=== PATIENT | male | born 1960 | race Two or more races ===

== ENCOUNTER 2025-04-20 14:21 | Emergency (ER) | payer MEDICAID, SELFPAY ==
[2025-04-20] VITALS (8 sets, daily range): BP systolic 106–124; BP diastolic 61–70; PULSE 98–120; RESP 18–22; TEMP 37.3–39.3; O2SAT 95–99; BMI 23.7
--- NOTE | 2025-04-20 14:43 | EKG_ITS ---
[facility] Test Date: 2025-04-20 Pat Name: CHARLI REARDON Department: Room: - Gender: Male Data Analytics Developer: : [id number] Requested By: Marino Raymundo Order Number: [id number] Reading MD: Marino Raymundo Measurements Intervals [place] Rate: 111 P: 87 AK: 180 QRS: 98 QRSD: 103 T: 98 QT: 328 QTc: 447 Interpretive Statements SINUS TACHYCARDIA BORDERLINE RIGHT AXIS DEVIATION [QRS AXIS > 90] MODERATE ST DEPRESSION [0.05+ mV ST DEPRESSION] Compared to ECG 01/02/2024 18:39:47 ST (T wave) deviation now present Sinus rhythm no longer present T-wave abnormality no longer present /store/S0/[id number].pdf
--- NOTE | 2025-04-20 14:44 | XR_ITS ---
EXAMINATION: AP chest single view TECHNIQUE: AP portable upright chest single view Date and time: April 20, 2025, 1549 hours COMPARISON: January 02, 2024 INDICATIONS: Sepsis alert today with shortness of breath FINDINGS: Normal heart size The lungs are clear. Moderate osteopenia IMPRESSION: No active disease
--- NOTE | 2025-04-20 14:46 | PD.EDWEAK ---
ED Weakness RME/HPI General Chief complaint: Weakness Stated complaint: GENERAL WEAKNES Time Seen by Provider: 04/20/25 14:40 Arrival date/time: 04/20/25 14:21 RME / HPI RME / HPI Narrative: 64-year-old male patient with significant history of diabetes mellitus COPD, lung mass came in for evaluation regarding not feeling well. Patient symptoms started early today's patient complained of generalized weakness, feeling hot, headache, body aches, severity moderate. Patient denies any cough denies any abdominal pain. No vomiting no diarrhea. Denies any sore throat. Patient was noted to be tachycardic 112 and temperature of 102.7. Sepsis alert was initiated right away Related Data Home Medications ?Medication ?Instructions ?Recorded ?Confirmed metformin 1,000 mg tablet 1,000 mg PO DAILY 07/11/18 07/11/18 Previous Rx's ?Medication ?Instructions ?Recorded albuterol sulfate 90 mcg/actuation 2 puff inhalation QID PRN 07/17/18 aerosol inhaler shortness of breath or wheezing #6.7 grams budesonide-formoterol HFA 80 2 puff inhalation BID #6.9 grams 07/17/18 mcg-4.5 mcg/actuation aerosol inhaler (Symbicort) insulin glargine 100 unit/mL (3 10 unit (0.1 mL) subcut QDAY #3 mL 07/17/18 mL) subcutaneous pen (Basaglar KwikPen U-100 Insulin) levofloxacin 250 mg tablet 500 mg (2 x 250 mg) PO QDAY #2 tabs 07/17/18 prednisone 10 mg tablet See Rx Instructions .Route 07/17/18 .COMPLEX #5 tabs cephalexin 500 mg tablet 500 mg PO TID #21 tabs 01/03/24 ibuprofen 800 mg tablet 800 mg PO Q8H PRN pain #30 tabs 04/20/25 Allergies Allergy/AdvReac Type Severity Reaction Status Date / Time No Known Allergies Allergy Verified 04/20/25 14:46 Review of Systems Review of Systems Narrative Review of Systems: Review of system reviewed and within normal limits except mentioned in HPI ED Exam Narrative Physical exam: VITAL SIGNS: Reviewed. GENERAL APPEARANCE: Alert and interactive, follows commands, no acute distress, febrile HEAD AND FACE: Non-traumatic. ENT: PERRL, pink conjunctivitis, eyelid no trauma, Mucous membrane moist. NECK: Supple, nontender, no nuchal rigidity. CHEST: No tenderness, no crepitus, no paradoxical movement, no retractions. LUNGS: Clear, well ventilated, symmetric, no rales, no wheezing, no ronchi, no stridor, good breath sounds bilaterally. HEART: Regular rate, regular rhythm, no murmur, no gallops. ABDOMEN: Soft, positive bowel sounds, nondistended, no guarding, nontender, no rebound, no masses, RECTAL: Deferred. GENITAL: Deferred. NEUROLOGICAL: Gross motor function intact sensory function intact, Appropriate for age. MUSCULOSKELETAL: low back nontender, full range of motion. EXTREMITIES: Nontender, full range of motion. SKIN: Color pink, dry, no rash, no lacerations, no abrasions, no contusions. LYMPHATICS: Deferred. Course Quality Measures none Orders Category Date Time Status Bedside COVID-19 Antigen Test NOW Care 04/20/25 14:43 Active Bender Machine Operator STAT Care 04/20/25 14:43 Active Continuous Pulse Oximetry STAT Care 04/20/25 14:43 Completed EKG (ED ONLY) *Do not use* NOW Care 04/20/25 14:43 Completed In and Out Catheter X1PRN Care 04/20/25 14:43 Active Insert IV NOW Care 04/20/25 14:43 Active NPO STAT Care 04/20/25 14:43 Active Strict Intake and Output Routine Care 04/20/25 14:43 Ordered EKG (ED Only) Stat Exams 04/20/25 14:43 Draft XR chest 1V SEPSIS PROTOCOL Stat Exams 04/20/25 14:44 Completed B-Type Natriuretic Peptide Stat Lab 04/20/25 15:18 Completed Blood Culture (Lab) Stat Lab 04/20/25 15:18 Received CBC Stat Lab 04/20/25 15:18 Completed Comprehensive Metabolic Panel Stat Lab 04/20/25 15:18 Completed LDH (Lactate Dehydrogenase) Stat Lab 04/20/25 15:18 Completed Lactate (Lactic Acid) Stat Lab 04/20/25 15:18 Completed Lipase Stat Lab 04/20/25 15:18 Completed Magnesium Stat Lab 04/20/25 15:18 Completed Partial Thromboplastin Time Stat Lab 04/20/25 15:18 Completed Phosphorous Stat Lab 04/20/25 15:18 Completed Procalcitonin Stat Lab 04/20/25 15:18 Completed Prothrombin Time with INR Stat Lab 04/20/25 15:18 Completed Troponin I Stat Lab 04/20/25 15:18 Completed Urinalysis, C/S if Indicated Stat Lab 04/20/25 17:15 Completed Acetaminophen Tab [Tylenol ES Tab] Med 04/20/25 14:43 Discontinued 1,000 mg PO X1 ONE Ibuprofen Tab [Motrin Tab] Med 04/20/25 17:12 Discontinued 800 mg PO X1 ONE Ringers Lactated 1000 ml [Lactated Ringers] 1,000 ml Med 04/20/25 14:44 Discontinued IV 999 mls/hr cefTRIAXone/D5w 1gm IV premix [Rocephin/D5w 1gm IV Med 04/20/25 14:45 Discontinued premix] 1 gm in 50 ml IV X1 Oxygen Delivery NOW RT 04/20/25 14:43 Active Vital Signs Vital signs: Vital Signs Temperature 102.7 F H 04/20/25 14:38 Pulse Rate 112 H 04/20/25 14:38 Respiratory Rate 20 04/20/25 14:38 Blood Pressure 121/65 04/20/25 14:38 Pulse Oximetry (%) 95 04/20/25 14:38 Oxygen Delivery Method Room Air 04/20/25 14:38 Weakness MDM Narrative MDM Narrative:: 64-year-old male patient with significant history of diabetes mellitus COPD, lung mass came in for evaluation regarding not feeling well. Patient symptoms started early today's patient complained of generalized weakness, feeling hot, headache, body aches, severity moderate. Patient denies any cough denies any abdominal pain. No vomiting no diarrhea. Denies any sore throat. Patient was noted to be tachycardic 112 and temperature of 102.7. Sepsis alert was initiated right away Patient's workup today all came back significant for WBC count of 14.3 urinalysis no UTI chest x-ray no pneumonia the rest of the labs unremarkable. EKG showed sinus tachycardia cardia, ventricular to 111 bpm, no ST segment elevation or depression noted. Patient was noted to be afebrile, and denying any complaints. Patient received IV fluids and 1 g of IV ceftriaxone and Tylenol. Patient is probably having viral infection causing the fever. Patient CT scan of the abdomen is not needed since patient is not having any abdominal pain. Patient family was advised to return to the emergency room for worsening of symptoms. Currently patient is afebrile and told me that he is relieved to go back to baseline. He is tolerating p.o. fluids. Patient data External records reviewed:: None Clinical information provided by:: patient and family Social determinants that could affect healthcare access:: none Patient has the following chronic illnesses:: History of lung mass How is presenting disease/condition affected by chronic disease/condition?: exacerbated by Evaluation data The following diagnostics were reviewed and interpreted by me:: lab results, radiology exam(s) and EKG tracing(s) Lab and/or radiology exams considered but not ordered:: None Interpretation Summary: Results came back unremarkable. See MDM Medications / Prescriptions Medications or Prescriptions considered but not ordered:: None Medication administrations:: Medication Administration History Discontinued Medications Acetaminophen (Acetaminophen 500 Mg Tablet) 1,000 mg PO X1 ONE Stop: 04/20/25 14:44 Last Admin: 04/20/25 15:12 Dose: 1,000 mg Documented By: DO Lactated Ringer's (Lactated Ringers) 1,000 mls @ 999 mls/hr IV .Q1H1M ONE Stop: 04/20/25 15:44 Last Admin: 04/20/25 15:12 Dose: 999 mls/hr Documented By: DO Ceftriaxone Sodium/Dextrose (Rocephin/D5w 1gm Iv Premix) 1 gm in 50 mls @ 100 mls/hr IV X1 ONE Stop: 04/20/25 15:14 Last Infusion: 04/20/25 18:21 Dose: Infused Documented By: Admin: 04/20/25 15:49 Dose: 100 mls/hr Documented By: DO Ibuprofen (Ibuprofen Tab 400 Mg Tablet) 800 mg PO X1 ONE Stop: 04/20/25 17:13 Last Admin: 04/20/25 18:24 Dose: 800 mg Documented By: VG Motrin, Tylenol, IV fluids ceftriaxone IV. Consultations Consultation(s) initiated? (list below): No Diagnosis Weakness Differential Diagnosis: anemia, sepsis and dehydration Most likely diagnosis given after review of the tests above:: Viral disease Admission Indicated Admission indicated?: not indicated Admission Request Was there a request for admission?: No Disposition Plan Disposition Plan: Discharge Discharge Attestation Discharge Attestation: The patient and all family members were given an opportunity to ask questions and understood the discharge instructions. Discharge instructions specifically effects, indications for sooner follow up or return to the emergency department, and the expected course of current diagnosis. Patient condition: Stable Discharge Plan Plan Patient Disposition: HOME (Self Care) Discharge Disposition comment: Stable Prescriptions/Referrals Prescriptions/Med Rec: New ibuprofen 800 mg tablet 800 mg PO Q8H PRN (Reason: pain) Qty: 30 0RF No Action metformin 1,000 mg Tablet 1,000 mg PO DAILY levofloxacin 250 mg Tablet 500 mg PO QDAY Qty: 2 0RF Rx Instructions: Start 07/18. Luxem[place]ish-language label. albuterol sulfate 90 mcg/actuation HFA aerosol inhaler 2 puff INH QID PRN (Reason: shortness of breath or wheezing) Qty: 6.7 0RF budesonide-formoterol [Symbicort] 80-4.5 mcg/actuation HFA aerosol inhaler 2 puff INH BID Qty: 6.9 0RF prednisone 10 mg tablet See Rx Instructions .ROUTE .COMPLEX Qty: 5 0RF Rx Instructions: 1 tab PO Qday x 3 days then 1/2 tab PO Qday x 3 days then stop insulin glargine [Basaglar KwikPen U-100 Insulin] 100 unit/mL (3 mL) insulin pen 10 unit SC QDAY Qty: 3 0RF Rx Instructions: Please provide with corresponding needles and syringes. cephalexin 500 mg tablet 500 mg PO TID Qty: 21 0RF Referrals: No Primary/Family,Physician [Primary Care Provider] - In 1 week Problem List Clinical Impression: Viral disease Patient/Caregiver Discharge Instructions Discharge Activity: activity as tolerated Education Materials: ED Viral Syndrome (Adult) Additional Instructions: Thank you for the opportunity for serving you today. You are stable for discharged . You are advised to: Follow-up with your PCP in 1 to 2 days Return to ED for worsening of symptoms Increase oral fluids Take medication as prescribed Print Language: Luxembourgish Stand Alone Forms: Karrie Award Info., Patient Portal Info Letter PA/PILLOWCASE MAKER Supervising Physician SHILPI/JEET Supervising Physician: MD Matilde
[2025-04-20] MEDS: ACETAMINOPHEN 500 MG TABLET 1000 MG PO (15:12)
[2025-04-20] MEDS: RINGERS LACTATED 1000 ML 1,000 ML 999 ML IV (15:12)
[2025-04-20 15:27] LABS: Lactate (Lactic Acid) 1.6 mMol/L (0.4-2.0)
[2025-04-20 15:33] LABS: Basophils # (Auto) 0.1 Thou/mm3 (0.0-0.2); Basophils % (Auto) 0 % (0-2.5); Eosinophils # (Auto) 0.3 Thou/mm3 (0.0-0.5); Eosinophils % (Auto) 2 % (0-10); Hematocrit 34.3 % (41.0-53.0); Hemoglobin 12.0 g/dL (13.5-16.0); Immature Granulocytes Auto 0.05 Thou/mm3 (0.00-0.00); Lymphocytes # (Auto) 0.8 Thou/mm3 (1.0-4.8); Lymphocytes % (Auto) 6 % (10-50); Mean Corpuscular HGB Conc 35.0 g/dl (31.0-37.0); Mean Corpuscular Hemoglobin 29.8 pg (25.0-35.0); Mean Corpuscular Volume 85 fL (80-100); Monocytes # (Auto) 0.8 Thou/mm3 (0.0-0.8); Monocytes % (Auto) 6 % (0-12); Neutrophils # (Auto) 12.4 Thou/mm3 (1.8-7.7); Neutrophils % (Auto) 86 % (37-80); Nucleated Red Blood Cell # 0.00 Thou/mm3 (0.00-0.00); Nucleated Red Blood Cell % 0 /100 WBC (0); Platelet Count 176 Thou/mm3 (140-440); RDW Standard Deviation 36.2 fL (35.1-43.9); Red Blood Count 4.03 Miln/mm3 (4.50-5.90); White Blood Count 14.3 Thou/mm3 (3.8-10.6)
[2025-04-20 15:46] LABS: B-Type Natriuretic Peptide < 20 pg/mL (0-100)
[2025-04-20] MEDS: cefTRIAXone/D5w 1gm IV premix 1 GM/50 ML BAG IV (15:49)
[2025-04-20 15:55] LABS: INR 1.0 (0.9-1.3); Partial Thromboplastin Time 26.8 Seconds (22.0-36.0); Prothrombin Time 10.8 Seconds (9.0-12.2)
[2025-04-20 15:58] LABS: Alanine Aminotransferase < 7 U/L (10-49); Albumin, Serum 4.2 gm/dL (3.4-4.8); Albumin/Globulin Ratio 1.8 (1.2-2.2); Alkaline Phosphatase 79 U/L (46-116); Anion Gap 10 (7-16); Aspartate Amino Transferase 15 U/L (0-34); BUN/Creatinine Ratio 16 Ratio (12-20); Bilirubin,Total 0.4 mg/dL (0.3-1.2); Blood Urea Nitrogen 19 mg/dL (9-23); Calcium 8.9 mg/dL (8.3-10.6); Calcium (Corrected) 8.9 mg/dL (8.5-10.1); Carbon Dioxide 23.5 mMol/L (20.0-31.0); Chloride 108 mMol/L (98-107); Creatinine (Component) 1.2 mg/dL (0.6-1.3); Estimated Creatinine Clearance 72.1 mL/min (>60); Globulin 2.4 gm/dL (2.3-3.5); Glucose 141 mg/dL (74-106); LDH (Lactate Dehydrogenase) 175 U/L (120-246); Lipase 26 U/L (12-53); Magnesium 2.1 mg/dL (1.6-2.6); Osmolality,Calculated 285 (275-295); Phosphorous 1.7 mg/dL (2.4-5.1); Potassium 3.8 mMol/L (3.4-5.1); Procalcitonin 0.25 ng/ml (0.0-0.49); Sodium 141 mMol/L (136-145); Total Protein 6.6 gm/dL (5.7-8.2); Troponin I < 0.020 ng/mL (0.0-0.045); eGFR > 60 See Note
[2025-04-20 17:20] LABS: Collection Type, Urine Clean Catch
[2025-04-20 17:47] LABS: Bilirubin,Urine Negative (Negative); Blood,Urine Negative (Negative); Clarity,Urine Clear (Clear/Hazy); Color,Urine Lt-Yellow (Lt Yel-Yel); Culture Indicated,Urine Not Indicated; Glucose, Urine 4+ (Negative); Ketones,Urine Negative (Negative); Leukocyte Esterase,Urine Negative (Negative); Nitrite,Urine Negative (Negative); PH,Urine 6.0 (5.0-7.0); Protein,Urine Negative (Neg - Trace); RBC,Urine 7 /hpf (0-3); Specific Gravity,Urine 1.029 (1.001-1.035); Squamous Epithelial Cell,Urine < 1 /hpf (0-5); Urobilinogen,Urine Negative mg/dL (0.0-1.0); WBC,Urine 1 /hpf (0-5)
[2025-04-20] MEDS: IBUPROFEN TAB 400 MG TABLET 800 MG PO (18:24)
== END 2025-04-20 20:57 | disposition home or self-care (01) ==
PROVIDERS: Nurse Practitioner Family; Emergency Provider Emergency Medicine
DX: B34.9 Viral infection, unspecified (principal); R00.0 Tachycardia, unspecified
CPT/HCPCS: 36415; 71045; 80053; 81001; 83605; 83615; 83690; 83735; 83880; 84100; 84145; 84484; 85025; 85610; 85730; 87040; 87811; 93005; 96365; 96366; 99284; J0696; J7120; A9270